=== PATIENT | female | born 1985 | race Caucasian/White ===

== ENCOUNTER 2016-04-30 23:27 | Outpatient (CLI) | payer BC ==
[2016-04-30 23:53] LABS: APPEARANCE,URINE SLIGHTLY-CLOUDY; BILIRUBIN,URINE NEGATIVE (NEGATIVE); GLUCOSE, URINE NEGATIVE (NEGATIVE); KETONES,URINE NEGATIVE (NEGATIVE); LEUKOCYTE ESTERASE,URINE MODERATE (NEGATIVE); NITRITE,URINE NEGATIVE (NEGATIVE); PROTEIN,URINE NEGATIVE (NEGATIVE); URINE SPECIFIC GRAVITY 1.018; UROBILINOGEN,URINE NEGATIVE mg/dL (<2.0)
[2016-05-01 00:04] LABS: URINE BARBITURATES SCREEN NEGATIVE; URINE METHADONE SCREEN NEGATIVE; URINE OPIATES LOW NEGATIVE; URINE PHENCYCLIDINE SCREEN NEGATIVE
--- NOTE | 2016-05-01 04:45 | L&D Admission Assessment ---
LD ADM ASMT Datetime Report Generated by CPN: 05/01/2016 04:45 PATIENT ASSESSMENT Assessment Type: Triage (04/30/2016 23:51:Yeni Field, RN) WEIGHT Weight (lb): 152 (05/01/2016 00:06:QS system process) Weight (kg): 69.1 (05/01/2016 00:06:QS system process) PAIN Pain Scale: 1 (04/30/2016 23:51:Yeni Denise RN) Pain Presence: Intermittent (04/30/2016 23:51:Yeni Denise RN) Pain Type: Cramping (04/30/2016 23:51:Yeni Denise RN) Pain Location: Abdomen; Perineum (04/30/2016 23:51:Yeni Denise RN) Pain Goal: 0 (04/30/2016 23:51:Yeni Denise RN) Pain Related to Contraction: Unsure (04/30/2016 23:51:Yeni Denise RN) CONTRACTIONS Frequency (min): 3.5-15.5 (05/01/2016 00:30:Yeni Denise RN) Frequency (min): x2 (05/01/2016 00:00:Yeni Denise RN) Duration (sec): 60-110 (05/01/2016 00:30:Yeni Denise RN) Duration (sec): 60-130 (05/01/2016 00:00:Yeni Denise RN) Quality: Mild (05/01/2016 00:30:Yeni Denise RN) Resting Tone Paden: Relaxed (05/01/2016 00:30:Yeni Denise RN) Resting Tone Paden: Relaxed (05/01/2016 00:00:Yeni Denise RN) NEURO Level of Consciousness: Fully Conscious (04/30/2016 23:51:Yeni Denise RN) DTR's/Clonus: DTRs 2+; No Clonus (04/30/2016 23:51:Yeni Denise RN) Headache: Denies (04/30/2016 23:51:Yeni Denise RN) Dizziness: No (04/30/2016 23:51:Yeni Denise RN) Blurred Vision: No (04/30/2016 23:51:Yeni Denise RN) Extremity Numbness/Tingling : None (04/30/2016 23:51:Yeni Denise RN) Extremity Movement: Full Range of Motion (04/30/2016 23:51:Yeni Denise RN) CARDIOVASCULAR Heart Rhythm: Regular (04/30/2016 23:51:Yeni Denise RN) Nailbeds: [place] (04/30/2016 23:51:Yeni Denise RN) Capillary Refill: Less than 3 Seconds (04/30/2016 23:51:Yeni eDnise RN) Lower Extremities Edema: None (04/30/2016 23:51:Yeni Denise RN) Lower Extremities Edema Degree: None (04/30/2016 23:51:Yeni Denise RN) Upper Extremities Edema: None (04/30/2016 23:51:Yeni Denise RN) Upper Extremities Edema Degree: None (04/30/2016 23:51:Yeni Denise RN) Facial Edema: None (04/30/2016 23:51:Yeni Denise RN) Yair's Sign Left Leg: Negative (04/30/2016 23:51:Yeni Denise RN) Yair's Sign Right Leg: Negative (04/30/2016 23:51:Yeni Denise RN) DVT RISK ASSESSMENT DVT Risk Age: Age less than 41 years (04/30/2016 23:51:Yeni Denise RN) DVT Risk BMI: BMI<31 (04/30/2016 23:51:Yeni Denise RN) DVT Risk Surgery: History of Prior Major Surgery (04/30/2016 23:51:Yeni Denise RN) RESPIRATORY Respiratory Effort: Unlabored; Regular Rhythm; Equal Expansion (04/30/2016 23:51:Yeni Denise, AVIS) Breath Sounds, Left: Clear and Equal (04/30/2016 23:51:Yeni Denise, AVIS) Breath Sounds, Right: Clear and Equal (04/30/2016 23:51:Yeni Denise RN) Cough Productivity: None (04/30/2016 23:51:Yeni Denise, AVIS) GASTROINTESTINAL Nausea/Vomiting: Present (04/30/2016 23:51:Yeni Denise RN) Bowel Sounds: Normoactive (04/30/2016 23:51:Yeni Denise RN) RUQ Epigastric Pain: Denies (04/30/2016 23:51:Yeni Denise RN) Bowel Patterns: Diarrhea (04/30/2016 23:51:Yeni Denise RN) Hemorrhoids: None (04/30/2016 23:51:Yeni Denise RN) Diet Type: Regular diet (04/30/2016 23:51:Yeni Denise RN) Last Meal: 04/30/2016 20:30 (04/30/2016 23:51:Yeni Denise RN) GENITOURINARY Bladder: Nondistended (04/30/2016 23:51:[facility] Frequency of Urination: No [facility]ination Burning: No (04/30/2016 [facility] CVA Tenderness: No (04/30/2016 23:[facility] INTEGUMENTARY Skin Color: Normal for Race (04/30/2016 23:51:[facility] Skin Temperature: Warm (04/30/2016 23:51:[facility] Skin Moisture: Dry (04/30/2016 23:[facility] SKIN ASSESSMENT Alexx Scale Sensory Perception: No Impairment- Responds to verbal commands. Has no sensory deficit which would limit ability to feel or voice pain or discomfort (04/30/2016 23:51:Yeni Denise RN) Alexx Scale Moisture: Rarely Moist- Skin is usually dry. Linen only requires changing at routine intervals (04/30/2016 23:51:Yeni Denise RN) Alexx Scale Activity: Walks Frequently- Walks outside the room at least twice a day and inside room at least every 2 hours during the day. (04/30/2016 23:51:Yeni Denise RN) Alexx Scale Mobility: No Limitations- Makes major and frequent changes in position without assistance (04/30/2016 23:51:Yeni Denise RN) Alexx Scale Nutrition: Excellent- Eats most of every meal. Never refuses a meal. Usually eats a total of 4 or more servings of meat and dairy products. Occasionally eats between meals. Does not require supplementation (04/30/2016 23:51:Yeni Denise RN) Alexx Scale Friction and Shear: No Apparent Problem- Moves in bed and in chair independently and has sufficient muscle strength to lift up completely during move. Maintains good position in bed or chair at all times (04/30/2016 23:51:Yeni Denise RN) Alexx Scale Total: 23 (04/30/2016 23:51:QS system process) Alexx Scale Risk: No Risk of Pressure Ulcer Noted at this Time (04/30/2016 23:51:QS system process) SUPPORT Emotional State: Calm/Relaxed (04/30/2016 23:51:Yeni Denise RN) SAFETY Call Roach Within Reach: Yes (04/30/2016 23:51:Yeni Denise RN) Side Rails Up: Yes (04/30/2016 23:51:Yeni Denise RN) Bed Wheels Locked: Yes (04/30/2016 23:51:Yeni Denise RN) Arm Bands Present: Yes (04/30/2016 23:51:Yeni Denise RN) Isolation: [place] (04/30/2016 23:51:Yeni Denise RN) FALL SCREEN Fall Risk History of Falling: (0) No (04/30/2016 23:51:Yeni Denise RN) Fall Risk Secondary Diagnosis: (0) No (04/30/2016 23:51:Yeni Denise RN) Fall Risk Ambulatory Aid: (0) None/Bedrest/Wheelchair/Nurse Assist (04/30/2016 23:51:Yeni Denise RN) Fall Risk IV Therapy: (0) No (04/30/2016 23:51:Yeni Denise RN) Fall Risk Gait: (0) Normal/Bedrest/Immobile (04/30/2016 23:51:Yeni Denise RN) Fall Risk Mental Status: (0) Oriented to Own Ability (04/30/2016 23:51:Yeni Denise RN) Fall Risk Score: 0 (04/30/2016 23:51:QS system process) Fall Risk Score Definition: No Risk: No action required (04/30/2016 23:51:QS system process) RECENT TRAVEL/INFECTIOUS DISEASE Recent Exp Communicable Disease: No (04/30/2016 23:51:Yeni Denise RN) Cough or Fever: No (04/30/2016 23:51:Yeni Denise RN) Foreign Travel Past 10 Days: No (04/30/2016 23:51:Yeni Denise RN) Open Wounds or Sores: No (04/30/2016 23:51:Yeni Denise RN) Prior Antibiotic Resistance Tx: No (04/30/2016 23:51:Yeni Denise RN) Isolation Initiated: No (04/30/2016 23:51:Yeni Denise RN) Pt/Family Education: Handwashing Hygiene (04/30/2016 23:51:Yeni Denise RN) BABY A FHR Baseline Rate (bpm) Baby A: 115 (05/01/2016 00:30:Yeni Denise RN) FHR Baseline Rate (bpm) Baby A: 115 (05/01/2016 00:00:Yeni Denise RN) Variability Baby A: Moderate 6-25 bpm (05/01/2016 00:30:Yeni Denise RN) Variability Baby A: Moderate 6-25 bpm (05/01/2016 00:00:Yeni Denise RN) Accelerations Baby A: 15X15 (05/01/2016 00:30:Yeni Denise RN) Accelerations Baby A: 15X15 (05/01/2016 00:00:Yeni Denise RN) Decelerations Baby A: None (05/01/2016 00:30:Yeni Denise RN) Decelerations Baby A: None (05/01/2016 00:00:Yeni Denise RN)
--- NOTE | 2016-05-01 04:45 | Antepartum Discharge Summary ---
Antepartum DC Datetime Report Generated by CPN: 05/01/2016 04:45 DIET/ACTIVITY/RESTRICTIONS Diet: Regular (05/01/2016 00:53:Yeni Denise RN) Activity: Normal Activity (05/01/2016 00:53:Yeni Denise, RN) TEACHING/INSTRUCTIONS/REFERRALS Instructions Given To: Patient (05/01/2016 00:53:Yeni Denise RN) Instructions Understood: Patient Verbalized Understanding (05/01/2016 00:53:Yeni Denise RN) Referrals: None (05/01/2016 00:53:Yeni Denise RN) Educational Materials- Other: Dehydration Labor (05/01/2016 00:53:Yeni Denise RN) DISCHARGE INFORMATION Discharged AMA: No (05/01/2016 00:53:Yeni Denise RN) Discharge Date/Time: 05/01/2016 00:48 (05/01/2016 00:53:Yeni Denise RN) Discharged To: Home (05/01/2016 00:53:Yeni Denise RN) Discharge Provider Name: Dr. Olivia (05/01/2016 00:53:Yeni Denise RN) Accompanied By: Self (05/01/2016 00:53:Yeni Denise RN) Discharge Method: Ambulatory (05/01/2016 00:53:Yeni Denise RN) Condition: Stable (05/01/2016 00:53:Yeni Denise RN) FOLLOW UP INFORMATION Follow Up With: [facility] (05/01/2016 00:53:Yeni Denise RN) Follow Up On: As Scheduled (05/01/2016 00:53:Yeni Denise RN) Follow Up Phone Number: [facility] - (05/01/2016 00:53:Yeni Denise RN) Comments: Discussed dehydration, labor and signs and symptoms of when to return to office or hospital with patient. Patient verbalized understanding. Patient discharged home for false labor via ambulation in stable condition. (05/01/2016 00:53:Yeni Denise RN) GENERAL INSTR-CALL PROVIDER IF: Contractions: Contractions or cramps become more frequent than 8 in one hour or 4 in 20 minutes; Regular painful contractions every 5 minutes or less for one hour. Time your contractions from the beginning of one to the beginning of the next (05/01/2016 00:53:Yeni Denise RN) Pressure: Pressure in your vagina or lower abdomen that may feel like the baby is pushing down (05/01/2016 00:53:Yeni Denise RN) Period Like Cramps: Period-like cramps or low dull backache that may come and go (05/01/2016 00:53:Yeni Denise RN) Cramps/Diarrhea: Abdominal cramps that may be accompanied by diarrhea (05/01/2016 00:53:Yeni Denise RN) Gush of Fluid/Blood: Gush of fluid or blood from your vagina (it is normal to have spotting after vaginal exam or intercourse) (05/01/2016 00:53:Yeni Denise RN) Vaginal Discharge: Change in the type or amount of vaginal discharge (05/01/2016 00:53:Yeni Denise RN) Decreased Movement: Your baby is not moving as much as usual- 4 movements in 1 hour after drinking and resting on side (05/01/2016 00:53:Yeni Denise RN) Temperature: Temperature greater than 100.0(F) orally (05/01/2016 00:53:Yeni Denise RN) Hypertension Signs/Symptoms: Severe headache which is not relieved 30 minutes after taking Tylenol(Acetaminophen); Blurry vision or spots before your eyes; Severe heartburn or pain on the upper right side of your abdomen that is not relieved by an antacid; Increased swelling in your face, hands or feet (05/01/2016 00:53:Yeni Denise RN) Urinary Output: Decreased urinary output or dark colored urine (05/01/2016 00:53:Yeni Denise RN)
--- NOTE | 2016-05-01 04:45 | L&D Flow Sheet ---
LD Flowsheet Datetime Report Generated by CPN: 05/01/2016 04:45 Datetime: 05/01/2016 00:35 Communication Communication: RN Reviewed Strip; Provider Orders Received; Call/Page Placed to Provider (Yeni Denise RN) Communication Comments: Informed DrMansoor Olivia of patient's complaint, history, urine results and FHR/Contractions; orders received to discharge home. (Yeni Denise RN) Datetime: 05/01/2016 00:30 Uterine Activity Monitor Mode: External; Palpation ([facility], RN) Frequency (min): 3.5-15.5 ([facility], RN) Quality: Mild ([facility], RN) Duration (sec): 60-110 ([facility], RN) Resting Tone (Palpate): Relaxed ([facility], RN) Assessment A Monitor Mode: External US ([facility], RN) FHR Baseline Rate : 115 ([facility], RN) Variability: Moderate 6-25 bpm (Yeni Field, RN) Accelerations: 15X15 (Yeni Field, RN) Decelerations: None (Yeni Field, RN) Datetime: 05/01/2016 00:16 NBP Sys/Holly/Mean (mmHg): 99 (QS system process) : 56 (QS system process) : 72 (QS system process) Pulse: 76 (QS system process) LaborFlag: Antepartum (QS system process) Datetime: 05/01/2016 00:01 Patient Care Patient Care Comments: Patient sat up in bed to pull bedside table closer (Yeni Field, RN) Datetime: 05/01/2016 00:00 Uterine Activity Monitor Mode: External; Palpation (Yeni Field, RN) Frequency (min): x2 (Yeni Field, RN) Duration (sec): 60-130 (Yeni Field, RN) Resting Tone (Palpate): Relaxed (Yeni Field, RN) Assessment A Monitor Mode: External US (Yeni Field, RN) FHR Baseline Rate : 115 ([facility]) Variability: Moderate 6-25 bpm ([facility]) Accelerations: 15X15 ([facility]) Decelerations: None ([facility]) Datetime: 04/30/2016 23:51 Pain Pain Scale: 1 ([facility], ) Pain Presence: Intermittent ([facility], ) Pain Type: Cramping ([facility], ) Pain Location: Abdomen; Perineum ([facility], ) Pain Goal: 0 ([facility]) Pain Relief Measures: Comfort Measures ([facility], ) Pain Coping: Talking Through Contractions; Breathing Through Contractions ([facility], ) Vaginal Exam Vaginal Bleeding: None (Yeni Field, RN) Maternal Assessment Level of Consciousness: Fully Conscious (Yeni Field, RN) DTR's/Clonus: DTRs 2+; No Clonus (Yeni Field, RN) Headache: Denies (Yeni Field, RN) Breath Sounds, Left: Clear and Equal (Yeni Field, RN) Breath Sounds, Right: Clear and Equal (Yeni Field, RN) Nausea/Vomiting: Present (Yeni Field, RN) RUQ Epigastric Pain: Denies (Yeni Field, RN) Teaching Instructional Method: Verbal; Patient Instructed; Verbalized Understanding (Yeni Denise, RN) Plan of Care: Plan of Care Discussed (Yeni Denise, RN) Unit Routine: [place] to Room; Call Roach; Bed; Visiting Policy; Waiting Areas; Phone/Cell Phone Use; Unit Personnel; Handwashing; Monitoring; Safety/Fall Risk Prevention; Bathroom Privileges (Yeni Field, RN) LaborFlag: Antepartum (QS system process) Datetime: 04/30/2016 23:46 NBP Sys/Holly/Mean (mmHg): 105 (QS system process) : 65 (QS system process) : 77 (QS system process) Pulse: 77 (QS system process) LaborFlag: Antepartum (QS system process) Datetime: 04/30/2016 23:44 Vital Signs Stage of : Antepartum (Yeni Denise RN)
--- NOTE | 2016-05-01 04:45 | L&D Current Admission ---
Current Admit Datetime Report Generated by CPN: 05/01/2016 04:45 ADMISSION INFORMATION Chief Complaint: Uterine Cramping (04/30/2016 23:51:Yeni Denise RN)
--- NOTE | 2016-05-01 04:45 | L&D Discharge Summary ---
OB Discharge Summary Datetime Report Generated by CPN: 05/01/2016 04:45 DISCHARGE DIAGNOSIS Diagnosis/Symptoms: False Labor Gestation: 34.2 Number of Babies in Womb: 1 Parity: 2 DIET/ACTIVITY/RESTRICTIONS Diet: Regular Activity: Normal Activity TEACHING/INSTRUCTIONS/REFERRALS Instructions Given To: Patient Instructions Understood: Patient Verbalized Understanding Referrals: None Educational Materials- Other: Dehydration Labor DISCHARGE INFORMATION Discharged AMA: No Discharge Date/Time: 05/01/2016 00:48 Discharged To: Home Discharge Provider Name: DrMansoor Olivia Accompanied By: Self Discharge Method: Ambulatory Condition: Stable FOLLOW UP INFORMATION Follow Up With: [facility] Follow Up On: As Scheduled Follow Up Phone Number: [facility] - Comments: Discussed dehydration, labor and signs and symptoms of when to return to office or hospital with patient. Patient verbalized understanding. Patient discharged home for false labor via ambulation in stable condition. GENERAL INSTR-CALL PROVIDER IF: Contractions: Contractions or cramps become more frequent than 8 in one hour or 4 in 20 minutes; Regular painful contractions every 5 minutes or less for one hour. Time your contractions from the beginning of one to the beginning of the next Pressure: Pressure in your vagina or lower abdomen that may feel like the baby is pushing down Period Like Cramps: Period-like cramps or low dull backache that may come and go Cramps/Diarrhea: Abdominal cramps that may be accompanied by diarrhea Gush of Fluid/Blood: Gush of fluid or blood from your vagina (it is normal to have spotting after vaginal exam or intercourse) Vaginal Discharge: Change in the type or amount of vaginal discharge Decreased Movement: Your baby is not moving as much as usual- 4 movements in 1 hour after drinking and resting on side Temperature: Temperature greater than 100.0(F) orally
--- NOTE | 2016-05-01 04:45 | L&D General Admission ---
General Admit Datetime Report Generated by CPN: 05/01/2016 04:45 INFORMATION Patient Age: 30 (04/30/2016 23:28:QS system process) EDC: 06/09/2016 00:00 (04/30/2016 23:31:Ibis Ojeda RN) : 3 (04/30/2016 23:31:Ibis Ojeda RN) Para: 2 (04/30/2016 23:31:Ibis Ojeda RN) Term: 2 (04/30/2016 23:31:Ibis Ojeda RN) : 0 (04/30/2016 23:31:Ibis Ojeda RN) Spontaneous Abortions: 0 (04/30/2016 23:31:Ibis Ojeda RN) Induced Abortions: 0 (04/30/2016 23:31:Ibis Ojeda RN) Livin (04/30/2016 23:31:Ibis Ojeda RN) Cesareans: 0 (04/30/2016 23:31:Ibis Ojeda RN) VBACs: 0 (04/30/2016 23:31:Ibis Ojeda RN) Ectopic: 0 (04/30/2016 23:31:Ibis Ojeda RN) Multiple Births: 0 (04/30/2016 23:31:Ibis Ojeda RN) Baby, Number in Womb: 1 (04/30/2016 23:31:Ibis Ojeda RN) CARE Primary Bricklayer Paving Brick: [facility] (04/30/2016 23:31:Yeni Denise RN) Height (in): 63 (05/01/2016 00:06:QS system process) ALLERGIES Medication Allergy: No (04/30/2016 23:31:Yeni Denise RN) Medication Allergies: No Known Allergies (05/01/2016) (05/01/2016 00:04:QS system process) Medication Allergies: N/A (04/30/2016 23:31:Yeni Denise RN) Latex Allergy: No Latex Allergies (04/30/2016 23:31:Yeni Denise RN) Food Allergies: N/A (04/30/2016 23:31:Yeni Denise RN) Environmental Allergies: N/A (04/30/2016:31:Yeni Denise RN) COMMUNICATION Primary Language: Kenyan (04/30/2016 23::Yeni Denise RN) Medical Tx Preferred Language: Kenyan (04/30/2016 23::Yeni Denise RN) Communication Barrier(s): None (04/30/2016 23::Yeni Denise RN) DEMOGRAPHICS Address: [address] [place] [address] (04/30/2016 23:28:QS system process) Zipcode: [address] (04/30/2016 23:28:QS system process) Home (04/30/2016 23:28:QS system process) SSN: [id number] (04/30/2016 23:28:QS system process) Next of Kin Name: ANDRAE STEINBERG (04/30/2016 23:28:QS system process) Next of Kin (04/30/2016 23:28:QS system process) Next of Kin Relationship: SPO (04/30/2016 23:28:QS system process) Date of : 1985 (04/30/2016 23:28:QS system process) Marital Status: (04/30/2016 23:28:QS system process) Sex: Female (04/30/2016 23:28:QS system process) Race: (04/30/2016 23:28:QS system process) Ethnicity: Non- or (04/30/2016 23:28:QS system process) Gnosticism: Other (04/30/2016 23:28:QS system process) DRUG AND ALCOHOL USE Alcohol: No (04/30/2016 23:31:Yeni Denise RN) Cigarettes: Never Smoker. [id number] (04/30/2016 23:31:Yeni Denise RN) Marijuana: No (04/30/2016 23:31:Yeni Denise RN) Cocaine: No (04/30/2016 23:31:Yeni Denise RN) Other Illicit Drugs: No (04/30/2016 23:31:Yeni Denise RN) VACCINE HISTORY Influenza Vaccine: No (04/30/2016 23:31:Ibis Ojeda RN) Influenza Date: declined (04/30/2016 23:31:Ibis Ojeda RN) Pneumococcal Vaccine: No (04/30/2016 23:31:Yeni Denise RN) Tetanus Vaccine: Yes (04/30/2016 23:31:Yeni Denise RN) Tdap Vaccine: Yes (04/30/2016 23:31:Ibis Ojeda RN) Tdap Date: 03/23/2016 (04/30/2016 23:31:Ibis Ojeda RN) Hepatitis B Vaccine: Uncertain (04/30/2016 23:31:Yeni Denise RN) Machine Striper: [facility] (04/30/2016 23:31:Yeni Denise RN) Feeding Preference: Both (04/30/2016 23:31:Yeni Denise RN) Benefit of Breast Feed Discussed: Yes (04/30/2016 23:31:Yeni Denise RN) Circumcision: Yes (04/30/2016 23:31:Yeni Denise RN) Classes Attended: No (04/30/2016 23:31:Yeni Denise RN) Consent: N/A (04/30/2016 23:31:Yeni Denise RN) Consent Signed: N/A (04/30/2016 23:31:Yeni Denise RN) Pain Management Plans: Epidural (04/30/2016 23:31:Yeni Field, RN) Plans for Labor and Delivery: None (04/30/2016 23:31:Yeni Denise RN) Support Person: Andrae Steinberg (04/30/2016 23:31:Yeni Denise RN) Support Person Relationship: (04/30/2016 23:31:Yeni Denise RN) Cultural/Spritual Practice: Jo (04/30/2016 23:31:Yeni Denise RN) Spir/Cult Dietary Needs: No (04/30/2016 23:31:Yeni Denise RN) LIVING SITUATION/DISCHARGE PLAN Living Arrangements: House (04/30/2016 23:31:Yeni Denise RN) Adequate Access to:: Electric; Heat; Refrigeration; Plumbing/Running water; Phone; Transportation (04/30/2016 23:31:Yeni Denise RN) WIC Program: Jo (04/30/2016 23:31:Yeni Denise RN) Discharge Hand Trimmer Person: Andrae Steinberg (04/30/2016 23:31:Yeni Denise RN) Person to Help after Discharge: Andrae Steinberg (04/30/2016 23:31:Yeni Denise RN) Currently Using Commun Resources: Jo (04/30/2016 23:31:Yeni Denise RN) Outside Agency/Shipyard Painter: Jo (04/30/2016 23:31:Yeni Denise RN) Adoption Requested: Jo (04/30/2016 23:31:Yeni Denise RN) Pt Contact w/ Post : N/A (04/30/2016 23:31:Yeni Denise RN) LABS Blood Type: A Negative (04/30/2016 23:31:Ibis Ojeda RN) Antibody Screen: Negative (04/30/2016 23:31:Yeni Denise RN) Gonorrhea: Negative (04/30/2016 23:31:Ibis Ojeda RN) Chlamydia: Negative (04/30/2016 23:31:Ibis Ojeda RN) RPR/VDRL: Nonreactive (04/30/2016 23:31:Ibis Ojeda RN) HIV Results: negative (04/30/2016 23:31:Ibis Ojeda RN) Hepatitis B: Negative (04/30/2016 23:31:Ibis Ojeda RN) Rubella: Non-Immune (04/30/2016 23:31:Ibis Ojeda RN) Rubella Titer: 0.93 (04/30/2016 23:31:Ibis Ojeda RN) OB/PREVIOUS HISTORY Previous Procedures: Ultrasound; NST (04/30/2016 23:31:Ibis Ojeda RN) Current Procedures: Ultrasound (04/30/2016 23:31:Ibis Ojeda RN) History of Previous : No (04/30/2016 23:31:Yeni Denise RN) History of Gestational Diabetes: No (04/30/2016 23:31:Yeni Denise RN) History of PIH: No (04/30/2016 23:31:Yeni Denise RN) History of Incompetent Cervix: No (04/30/2016 23:31:Yeni Denise RN) History of Placenta Previa/Abrup: No (04/30/2016 23:31:Yeni Denise RN) History of Macrosomia: No (04/30/2016 23:31:Yeni Denise RN) History of IUGR: No (04/30/2016 23:31:Yeni Denise RN) History of Hemorrhage: No (04/30/2016 23:31:Yeni Denise RN) History of Loss/Stillborn: No (04/30/2016 23:31:Yeni Denise RN) History of : No (04/30/2016 23:31:Yeni Denise RN) History of D (Rh) Sensitization: No (04/30/2016 23:31:Yeni Denise RN) History Recurrent Loss/Stillborn: No (04/30/2016 23:31:Yeni Denise RN) History Depression/PP Depression: No (04/30/2016 23:31:Yeni Denise RN) History of Uterine Anomaly/ANNE: No (04/30/2016 23:31:Yeni Denise RN) History of Infertility: No (04/30/2016 23:31:Yeni Denise RN) History of ART Treatment: No (04/30/2016 23:31:Yeni Denise RN) History of ANNE: No (04/30/2016 23:31:Yeni Denise RN) Comments Obstetrical History: g1- 2005, female, , epidural, 6lb 12oz g2- 2005, male, , epidural, 7lb 11oz g3- current Rhogam 03/23/2016 (04/30/2016 23:31:Ibis Ojeda RN) MEDICAL HISTORY Med Hx Diabetes: No (04/30/2016 23:31:Yeni Denise RN) Med Hx Hypertension: No (04/30/2016 23:31:Yeni Denise RN) Med Hx Heart Disease: No (04/30/2016 23:31:Yeni Denise RN) Med Hx Autoimmune Disorder: No (04/30/2016 23:31:Yeni Denise RN) Med Hx Kidney Disease/UTI: Yes (04/30/2016 23:31:Yeni Denise RN) Med Hx Neurologic/Epilepsy: No (04/30/2016 23:31:Yeni Denise RN) Med Hx Psychiatric Disorders: No (04/30/2016 23:31:Yeni Denise RN) Med Hx Hepatitis/Liver Disease: No (04/30/2016 23:31:Yeni Denise RN) Med Hx Varicosities/Phlebitis: No (04/30/2016 23:31:Yeni Denise RN) Med Hx Thyroid Dysfunction: No (04/30/2016 23:31:Yeni Denise RN) Med Hx Trauma/Violence: No (04/30/2016 23:31:Yeni Denise RN) Med Hx Blood Transfusion: No (04/30/2016 23:31:Yeni Denise RN) Med Hx Pulmonary (Asthma,TB): No (04/30/2016 23:31:Yeni Denise RN) Med Hx Breast: Yes (04/30/2016 23:31:Yeni Denise RN) Med Hx GUINEA PIG BREEDER Surgery: No (04/30/2016 23:31:Yeni Denise RN) Med Hx Hospitalization/Surgery: Yes (04/30/2016 23:31:Yeni Denise RN) Med Hx Anesthetic Complications: No (04/30/2016 23:31:Yeni Denise RN) Med Hx Abnormal Pap Smear: No (04/30/2016 23:31:Yeni Denise RN) Other Medical Diseases: No (04/30/2016 23:31:Yeni Denise RN) Med Hx Significant Family Hx: No (04/30/2016 23:31:Yeni Denise RN) Details of Med/Surg Hx: uti, anemia, breast augmentation (2005) (04/30/2016 23:31:Yeni Denise RN) INFECTIOUS HISTORY Inf Hx Gonorrhea: No (04/30/2016 23:31:Yeni Denise RN) Inf Hx Chlamydia: No (04/30/2016 23:31:Yeni Denise RN) Inf Hx Syphilis: No (04/30/2016 23:31:Yeni Denise RN) Inf Hx HIV/AIDS: No (04/30/2016 23:31:Yeni Denise RN) Inf Hx Human Papilloma Virus: No (04/30/2016 23:31:Yeni Denise RN) Inf Hx Pt/Partner Genital Herpes: No (04/30/2016 23:31:Yeni Denise RN) Inf Hx Tuberculosis/Exposure: No (04/30/2016 23:31:Yeni Denise RN) Inf Hx Hepatitis B,C: No (04/30/2016 23:31:Yeni Denise RN) Inf Hx Rash or Viral Illness: No (04/30/2016 23:31:Yeni Denise RN) GENETIC HISTORY Gen Hx Age >=35 at [place]: No (04/30/2016 23:31:Yeni Denise RN) Gen Hx Thalassemia: No (04/30/2016 23:31:Yeni Denise RN) Gen Hx Congenital Heart Defect: No (04/30/2016 23:31:Yeni Denise RN) Gen Hx Neural Tube Defect: No (04/30/2016 23:31:Yeni Denise RN) Gen Hx Down's Syndrome: No (04/30/2016 23:31:Yeni Denise RN) Gen Hx Dong-Sachs: No (04/30/2016 23:31:Yeni Denise RN) Gen Hx Spencer: No (04/30/2016 23:31:Yeni Denise RN) Gen Hx Familial Dysautonomia: No (04/30/2016 23:31:Yeni Denise RN) Gen Hx Sickle Cell Disease/Trait: No (04/30/2016 23:31:Yeni Denise RN) Gen Hx Hemophilia/Blood Disorder: No (04/30/2016 23:31:Yeni Denise RN) Gen Hx Muscular Dystrophy: No (04/30/2016 23:31:Yeni Denise RN) Gen Hx Cystic Fibrosis: No (04/30/2016 23:31:Yeni Denise RN) Gen Hx Huntingtons Chorea: No (04/30/2016 23:31:Yeni Denise RN) Gen Hx Mental Retardation/Autism: No (04/30/2016 23:31:Yeni Denise RN) Gen Hx Tested for Fragile X: No (04/30/2016 23:31:Yeni Denise RN) Gen Hx Other Inher/Chromosomal: No (04/30/2016 23:31:Yeni Denise RN) Gen Hx Maternal Metabolic DO: No (04/30/2016 23:31:Yeni Denise RN) Gen Hx Pt Father or FOB Defect: No (04/30/2016 23:31:Yeni Denise RN) Gen Hx Other Genetic History: No (04/30/2016 23:31:Yeni Denise RN) Gen Hx Drugs/Meds since LMP: Yes (04/30/2016 23:31:Yeni Denise RN) Gen Hx Medications: vitamins and Iron supplement (04/30/2016 23:31:Yeni Denise RN)
== END 2016-05-01 00:48 | disposition home or self-care (01) ==
LOC: LC 23:27
PROVIDERS: ATTEND Obstetrics & Gynecology
PROC: 4A1HXCZ Monitoring of Products of Conception, Cardiac Rate, External Approach (ICD-10-PCS; principal; 2016-04-30)
DX: O47.03 False labor before 37 completed weeks of gestation, third trimester (principal); Z3A.34 34 weeks gestation of pregnancy
CPT/HCPCS: 59025; 80307; 81001

== ENCOUNTER 2016-05-21 14:23 | Outpatient (CLI) | payer BC ==
--- NOTE | 2016-05-21 14:25 | Non Stress Test Report ---
Non Stress Test Datetime Report Generated by CPN: 05/21/2016 14:25 DEMOGRAPHIC Test Number: 1 EGA NST: 34.3 INDICATION Indication for Study: Ordered by Provider Indication for Study (NST) Other: LC MONITORING Monitor Explained: Monitor Explained; Test Explained; Patient Verbalized Understanding Time on Monitor: 04/30/2016 23:44 Time off Monitor: 05/01/2016 00:39 NST Duration: 55 NST INTERVENTIONS NST Interventions: PO Hydration; Reposition Patient Physician Notified NST: Dr. Olivia BABY A: [id number] BABY A Movement : Present Contraction Frequency : 3.5-15.5 FHR Baseline : 115 Accelerations : 15X15 Decelerations : None Variability : Moderate 6-25bpm NST Review: Meets Criteria for Reactive NST NST Review and Verified By : Maria C Briseno RN NST Results: Reactive NST REPORT Report Trigger: Send Report
[2016-05-21 15:00] LABS: APPEARANCE,URINE CLOUDY; BILIRUBIN,URINE NEGATIVE (NEGATIVE); GLUCOSE, URINE NEGATIVE (NEGATIVE); KETONES,URINE TRACE mg/dL (NEGATIVE); LEUKOCYTE ESTERASE,URINE LARGE (NEGATIVE); NITRITE,URINE NEGATIVE (NEGATIVE); PROTEIN,URINE 30 mg/dL (NEGATIVE); URINE SPECIFIC GRAVITY 1.023; UROBILINOGEN,URINE NEGATIVE mg/dL (<2.0)
[2016-05-21 15:24] LABS: URINE BARBITURATES SCREEN NEGATIVE; URINE METHADONE SCREEN NEGATIVE; URINE OPIATES LOW NEGATIVE; URINE PHENCYCLIDINE SCREEN NEGATIVE
--- NOTE | 2016-05-21 16:22 | Non Stress Test Report ---
Non Stress Test Datetime Report Generated by CPN: 05/21/2016 16:22 DEMOGRAPHIC EGA NST: 37.2 INDICATION Indication for Study: Ordered by Provider MONITORING Monitor Explained: Monitor Explained; Test Explained; Patient Verbalized Understanding Time on Monitor: 05/21/2016 14:46 Time off Monitor: 05/21/2016 16:05 NST Duration: 79 NST INTERVENTIONS NST Interventions: PO Hydration; Reposition Patient Physician Notified NST: Dr. Neilsen BABY A Movement : Present Contraction Frequency : Irregular FHR Baseline : 125 Accelerations : 15X15 Decelerations : None Variability : Moderate 6-25bpm NST Review: Meets Criteria for Reactive NST NST Results: Reactive NST REPORT Report Trigger: Send Report
== END 2016-05-21 16:11 | disposition home or self-care (01) ==
LOC: LC 14:23
PROVIDERS: ATTEND Specialist
PROC: 4A1HXCZ Monitoring of Products of Conception, Cardiac Rate, External Approach (ICD-10-PCS; principal; 2016-05-21)
DX: O47.1 False labor at or after 37 completed weeks of gestation (principal); O99.283 Endocrine, nutritional and metabolic diseases complicating pregnancy, third trimester; Z3A.37 37 weeks gestation of pregnancy; E86.0 Dehydration
CPT/HCPCS: 80307; 81005

== ENCOUNTER 2016-06-09 05:18 | Outpatient (CLI) | payer BC ==
[2016-06-09 05:58] LABS: APPEARANCE,URINE SLIGHTLY-CLOUDY; BILIRUBIN,URINE NEGATIVE (NEGATIVE); GLUCOSE, URINE NEGATIVE (NEGATIVE); KETONES,URINE 20 mg/dL (NEGATIVE); LEUKOCYTE ESTERASE,URINE TRACE (NEGATIVE); NITRITE,URINE NEGATIVE (NEGATIVE); PROTEIN,URINE NEGATIVE (NEGATIVE); URINE SPECIFIC GRAVITY 1.016; UROBILINOGEN,URINE NEGATIVE mg/dL (<2.0)
[2016-06-09 06:14] LABS: URINE BARBITURATES SCREEN NEGATIVE; URINE METHADONE SCREEN NEGATIVE; URINE OPIATES LOW NEGATIVE; URINE PHENCYCLIDINE SCREEN NEGATIVE
--- NOTE | 2016-06-09 07:34 | Non Stress Test Report ---
Non Stress Test Datetime Report Generated by CPN: 06/09/2016 07:33 DEMOGRAPHIC EGA NST: 40.0 INDICATION Indication for Study: Ordered by Provider MONITORING Monitor Explained: Monitor Explained; Test Explained; Patient Verbalized Understanding Time on Monitor: 06/09/2016 05:32 Time off Monitor: 06/09/2016 06:14 NST Duration: 42 NST INTERVENTIONS NST Interventions: None Physician Notified NST: Dr. Omalley BABY A: [id number] BABY A Movement : Present Contraction Frequency : rare FHR Baseline : 115 Accelerations : 15X15 Decelerations : None Variability : Moderate 6-25bpm NST Review: Meets Criteria for Reactive NST NST Review and Verified By : Any Lanza RN NST Results: Reactive NST REPORT Report Trigger: Send Report
[2016-06-12] MEDS ORDERED: PENICILLIN G-K 5 MILLION UNIT VIAL ONE (08:12)
== END 2016-06-09 07:30 | disposition home or self-care (01) ==
LOC: LC 05:18 → LR 06-12 08:18 → UNDOADMIN 06-12 08:18
PROVIDERS: ATTEND Obstetrics & Gynecology
PROC: 4A1HXCZ Monitoring of Products of Conception, Cardiac Rate, External Approach (ICD-10-PCS; principal; 2016-06-09)
DX: O48.0 Post-term pregnancy (principal); Z3A.40 40 weeks gestation of pregnancy
CPT/HCPCS: 59025; 80307; 81005

== ENCOUNTER 2016-06-12 08:13 | Inpatient (IN) | payer BC ==
[2016-06-12] MEDS ORDERED: RINGERS SOLUTION,LACTATED 1,000 ML IV PRN (08:15)
[2016-06-12] MEDS ORDERED: PENICILLIN G POTASSIUM 5,000,000 UNIT in DEXTROSE 5%-WATER 100 ML IV ONE (08:15)
[2016-06-12] MEDS ORDERED: PENICILLIN G-K 5 MILLION UNIT VIAL IV ONE (08:30)
[2016-06-12 08:38] LABS: APPEARANCE,URINE SLIGHTLY-CLOUDY; BILIRUBIN,URINE NEGATIVE (NEGATIVE); GLUCOSE, URINE NEGATIVE (NEGATIVE); KETONES,URINE NEGATIVE (NEGATIVE); LEUKOCYTE ESTERASE,URINE SMALL (NEGATIVE); NITRITE,URINE NEGATIVE (NEGATIVE); PROTEIN,URINE NEGATIVE (NEGATIVE); URINE SPECIFIC GRAVITY 1.016; UROBILINOGEN,URINE NEGATIVE mg/dL (<2.0)
[2016-06-12 08:57] LABS: ABSOLUTE BASOPHILS # (AUTO) 0.1 10^3/uL (0.0-0.2); ABSOLUTE EOSINOPHILS # (AUTO) 0.1 10^3/uL (0.0-0.6); ABSOLUTE LYMPHOCYTES (AUTO) 1.9 10^3/uL (0.5-4.7); ABSOLUTE MONOCYTES (AUTO) 0.7 10^3/uL (0.1-1.4); ABSOLUTE NEUT (AUTO) 6.1 10^3/uL (1.7-8.2); BASOPHILS % (AUTO) 1.1 % (0-2); HEMOGLOBIN 10.5 g/dL (12.0-15.5); HGB HCT DIFFERENCE 0.5; LYMPHOCYTES % (AUTO) 21.5 % (13-45); MEAN CORPUSCULAR HEMOGLOBIN 28.4 pg (27.0-33.4); MEAN CORPUSCULAR HGB CONC 33.8 g/dL (32.0-36.0); MEAN CORPUSCULAR VOLUME 84 fl (80-97); MONOCYTES % (AUTO) 7.6 % (3-13); RED BLOOD COUNT 3.69 10^6/uL (3.72-5.28); RED CELL DISTRIBUTION WIDTH 14.8 % (11.5-14.0); SEGMENTED NEUTROPHILS % (AUTO) 68.8 % (42-78); WHITE BLOOD COUNT 8.8 10^3/uL (4.0-10.5)
[2016-06-12 08:59] LABS: URINE BARBITURATES SCREEN NEGATIVE; URINE METHADONE SCREEN NEGATIVE; URINE OPIATES LOW NEGATIVE; URINE PHENCYCLIDINE SCREEN NEGATIVE
[2016-06-12] MEDS ORDERED: MISOPROSTOL 0.2 MG TABLET ONE (09:06)
[2016-06-12] MEDS ORDERED: LIDOCAINE 1% INJ-PF (10 MG/ML) 30 ML SDV ONE (09:07)
[2016-06-12] MEDS ORDERED: EPHEDRINE SULFATE INJ 50 MG/1 ML AMPULE ONE (09:07)
[2016-06-12] MEDS ORDERED: OXYTOCIN/NORMAL SALINE 20 UNIT/1,000 ML RTUINJ ONE (09:07)
[2016-06-12] MEDS ORDERED: FENTANYL/BUPIVACAINE/NS/PF 200 MCG/100 ML RTUINJ EPI ONE (09:07)
[2016-06-12] MEDS ORDERED: BUPIVACAINE HCL 0.25 % INJ/PF (2.5 MG/1 ML) 30 ML VIAL ONE (09:07)
[2016-06-12] MEDS ORDERED: PRENATAL VITAMIN W-O CA NO5/FE FUMARATE/FA CAPSULE PO SCH (10:00)
[2016-06-12] MEDS ORDERED: FERROUS SULFATE 325 MG TABLET PO SCH ×2 (10:00→18:00)
[2016-06-12] MEDS ORDERED: (PENDING PHARMACY ID) (Pnv No.122/Iron/Folic Acid [Prenatal Multi Tablet] 1 EACH) PO SCH (10:00)
[2016-06-12] MEDS ORDERED: OXYTOCIN/NORMAL SALINE 1,000 ML IV PRN ×2 (11:34→11:36)
[2016-06-12] MEDS ORDERED: BENZOCAINE/MENTHOL AEROSOL SPRAY 56 ML TOP PRN ×2 (11:34→11:36)
[2016-06-12] MEDS ORDERED: DIBUCAINE 1% OINTMENT 28 GM TP PRN ×2 (11:34→11:36)
[2016-06-12] MEDS ORDERED: ZOLPIDEM TARTRATE 5 MG TABLET PO PRN (11:34)
[2016-06-12] MEDS ORDERED: DIPH/PERTUSS(ACELL)/TETANUS VAC/PF 0.5 ML SYR (>=10YO) IM PRN ×2 (11:34→11:36)
[2016-06-12] MEDS ORDERED: MEASLES,MUMPS&RUBELLA VACC/PF 0.5 ML VIAL SUBCUT PRN ×2 (11:34→11:36)
[2016-06-12] MEDS ORDERED: ACETAMINOPHEN WITH CODEINE #3 TABLET PO PRN ×4 (11:34→11:36)
[2016-06-12] MEDS ORDERED: PENICILLIN G-K 5 MILLION UNIT VIAL IV SCH (12:00)
[2016-06-12] MEDS ORDERED: PENICILLIN G POTASSIUM 2,500,000 UNIT in DEXTROSE 5%-WATER 50 ML IV SCH (12:17)
--- NOTE | 2016-06-12 12:59 | Delivery Summary ---
Del Sum A-C Datetime Report Generated by CPN: 06/12/2016 12:58 DELIVERY PERSONNEL DELIVERY PERSONNEL: [phone] Delivery Doctor:: Earnestine Chavez CNM Nurse Seam Taper Machine Certified:: Earnestine Chavez CNM Labor and Delivery Nurse:: Rose Molina RNmass spectrometry manager Nurse:: LAUREN Medley Drupal Programmer/911 EMERGENCY DISPATCHER: Lilly Lion CST Drupal Programmer/911 EMERGENCY DISPATCHER: Sarah Valero CNA II Additional Personnel: : Rose Terrell, RN MATERNAL INFORMATION Delivery Anesthesia: Epidural Medications After Delivery: Pitocin Bolus-Please Comment Meds After Delivery Comment: pitocin 20 unit in 1000 ml NSS open for bolus Estimated Blood Loss (ml): 200 Maternal Complications: None Provider Comments: of viable male , over intact perineum. Head, shoulders, and body delivered without difficulty, infant with spontaneous cry and respirations, to maternal abdomen. Cord clamped X2, after 2 min delay, by pts . placed skin to skin. Spontaneous delivery of intact placenta via north mechanism, appears intact, 3 VC. Vagina and perineum inspected, no lacerations noted, hemostasis acheived with external fundal massage and IV pitocin, mother and in stable condition, routine pp care. LABOR SUMMARY EDC: 06/09/2016 00:00 No. Babies in Womb: 1 Attempted: No Labor Anesthesia: Epidural LABOR INFORMATION Reason for Induction: Not Applicable Onset of Labor: 06/12/2016 06:45 Complete Dilatation: 06/12/2016 11:05 Oxytocin: N/A Group B Beta Strep: Positive Antibiotics # of Doses: 1 Antibiotics Time of Last Dose: 0818 Name of Antibiotic Given: Penicillin Steroids Given: None Reason Steroids Not Administered: Not Applicable MEMBRANES Membranes Rupture Method: Spontaneous Rupture of Membranes: 06/12/2016 06:45 Length of Rupture (hr): 4.62 Amniotic Fluid Color: Clear Amniotic Fluid Amount: Small Amniotic Fluid Odor: Normal STAGES OF LABOR Stage 1 hr: 4 Stage 1 min: 20 Stage 2 hr: 0 Stage 2 min: 17 Stage 3 hr: 0 Stage 3 min: 4 Total Time in Labor hr: 4 Total Time in Labor min: 41 VAGINAL DELIVERY Episiotomy: None Laceration Extension: N/A Laceration Type: None Laceration Repair: Not Applicable Laceration Repair Note: n/a Sponge Count Correct: N/A Sharps Count Correct: N/A CSECTION DELIVERY Primary Indication: N/A Secondary Indication: N/A CSection Incidence: N/A Labor: N/A Elective: N/A CSection Incision: N/A BABY A INFORMATION Delivery Date/Time: 06/12/2016 11:22 Method of Delivery: Vaginal Born in Route : No : N/A Forceps: N/A Vacuum Extraction: N/A Shoulder Dystocia : No PRESENTATION/POSITION BABY A Presentation: Cephalic Cephalic Presentation: Vertex Vertex Position: Left Occipital Anterior Breech Presentation: N/A PLACENTA INFORMATION BABY A Placenta Delivery Time : 06/12/2016 11:26 Placenta Method of Delivery: Spontaneous Placenta Status: Delivered SCORES BABY A Heart Rate 1 min: >100 bpm Resp Effort 1 min: Good Cry Reflex Irritability 1 min: Cough or Sneeze or Pulls Away Muscle Tone 1 min: Active Motion Color 1 min: Blue/Pale Resuscitation Effort 1 min: Tactile Stimulation SCORE 1 MIN: 8 Heart Rate 5 min: >100 bpm Resp Effort 5 min: Good Cry Reflex Irritability 5 min: Cough or Sneeze or Pulls Away Muscle Tone 5 min: Active Motion Color 5 min: Body Joice, Extremities Blue Resuscitation Effort 5 min: N/A SCORE 5 MIN: 9 Resuscitation Effort 10 min: N/A INFANT INFORMATION BABY A Gestational Age at Delivery: 40.3 Gestational Status: Full Term- 39- 40.6 Weeks Infant Outcome : Liveborn Condition : Stable Sex: Male IDENTIFICATION BABY A Infant Verification Date/Time: 06/12/2016 12:10 ID Band Number: [id number] Mother's Name Verified: Yes Infant RN Verifying Infant: Kwaku Molina RN Kwaku Terrell RN WEIGHT/LENGTH BABY A Birthweight (gm): 4170 Weight (lb): 9 Infant Weight (oz): 3 Length (in): 21.50 Length (cm): 54.61 CORD INFORMATION BABY A No. Cord Vessels: 3 Nuchal Cord : N/A Cord Blood Taken: Yes-For Eval (Mom's Blood Type - or O+) Infant Suction: None ASSESSMENT BABY A Infant Complications: None Physical Findings at Delivery: Within Normal Limits Infant Respirations: Appears Normal Skin to Skin: Yes Skin to Skin Time (min): 60 Cloth Bleaching Range Back Tender/ALS Called : No Infant Care By: Becky Xander [facility] Transferred To: Remains with Mother SIGNATURES Assignment: Henri Omalley DO Signature: with User ID: Jacob : with User ID: Jacob
[2016-06-12] MEDS ORDERED: IBUPROFEN 800 MG TABLET PO SCH (14:00)
[2016-06-12] MEDS ORDERED: DOCUSATE SODIUM 100 MG CAPSULE PO SCH (18:00)
[2016-06-12] MEDS: IBUPROFEN 800 MG TABLET PO SCH ×2 (18:14→18:19)
[2016-06-12] MEDS: DOCUSATE SODIUM 100 MG CAPSULE PO SCH (18:15)
[2016-06-12] MEDS: FERROUS SULFATE 325 MG TABLET PO SCH (18:15)
[2016-06-13] MEDS: IBUPROFEN 800 MG TABLET PO SCH ×3 (06:04→22:39)
[2016-06-13 07:03] LABS: HEMATOCRIT 28.6 % (36.0-47.0); HEMOGLOBIN 9.9 g/dL (12.0-15.5); HGB HCT DIFFERENCE 1.1; MEAN CORPUSCULAR HGB CONC 34.7 g/dL (32.0-36.0); MEAN CORPUSCULAR VOLUME 83 fl (80-97); RED BLOOD COUNT 3.43 10^6/uL (3.72-5.28); RED CELL DISTRIBUTION WIDTH 14.5 % (11.5-14.0); WHITE BLOOD COUNT 10.4 10^3/uL (4.0-10.5)
--- NOTE | 2016-06-13 09:08 | PDOC PROGRESS REPORT ---
Subjective-OB Subjective: Post Delivery Day: 31 year old. Denies any needs at this time Doing well, no c/o, ambulating, , scant lochia Physical Exam (OB) Vital Signs: Temp Pulse Resp BP Pulse Ox 97.7 F 63 16 99/55 L 98 06/13/16 08:34 06/13/16 08:34 06/13/16 08:34 06/13/16 08:03 06/13/16 08:34 Intake & Output 06/12/16 06/13/16 06/14/16 06:59 06:59 06:59 Weight 69.75 kg - Lochia Lochia Amount: Small 10-25 ml Lochia Color: Rubra/Red - Abdomen Description: Soft, Round Hernia Present: No Fundal Description: Firm, Midline Fundal Height: u/u - u/2 Objective-Diagnostic Laboratory: 06/13/16 06:44 06/12/16 06/12/16 06/13/16 08:30 08:30 06:44 WBC 8.8 10.4 RBC 3.69 L 3.43 L Hgb 10.5 L 9.9 L Hct 31.0 L 28.6 L MCV 84 83 MCH 28.4 29.0 MCHC 33.8 34.7 RDW 14.8 H 14.5 H Plt Count 108 L 111 L Seg Neutrophils % 68.8 Lymphocytes % 21.5 Monocytes % 7.6 Eosinophils % 1.0 Basophils % 1.1 Absolute Neutrophils 6.1 Absolute Lymphocytes 1.9 Absolute Monocytes 0.7 Absolute Eosinophils 0.1 Absolute Basophils 0.1 Blood Type A NEGATIVE Antibody Screen POSITIVE Assessment and Plan(PN) - Assessment and Plan (1) Normal vaginal delivery Is this a current diagnosis for this admission?: Yes - Time Spent with Patient Time with patient: Less than 15 minutes Medications reviewed and adjusted accordingly: Yes - Disposition Anticipated Discharge: Home Within: within 24 hours
[2016-06-13] MEDS: DOCUSATE SODIUM 100 MG CAPSULE PO SCH ×2 (09:10→17:15)
[2016-06-13] MEDS: PRENATAL VITAMIN W-O CA NO5/FE FUMARATE/FA CAPSULE PO SCH (09:10)
[2016-06-13] MEDS: FERROUS SULFATE 325 MG TABLET PO SCH ×2 (09:10→17:15)
[2016-06-13] MEDS: SENNOSIDES/DOCUSATE 8.6-50 MG 1 EACH TABLET PO SCH (09:10)
[2016-06-13] MEDS ORDERED: SENNOSIDES/DOCUSATE 8.6-50 MG 1 EACH TABLET PO SCH (10:00)
[2016-06-13] MEDS ORDERED: PRENATAL VITAMIN W-O CA NO5/FE FUMARATE/FA CAPSULE PO SCH (10:00)
[2016-06-14] MEDS: IBUPROFEN 800 MG TABLET PO SCH (05:36)
[2016-06-14] MEDS: DOCUSATE SODIUM 100 MG CAPSULE PO SCH (09:10)
[2016-06-14] MEDS: PRENATAL VITAMIN W-O CA NO5/FE FUMARATE/FA CAPSULE PO SCH (09:10)
[2016-06-14] MEDS: SENNOSIDES/DOCUSATE 8.6-50 MG 1 EACH TABLET PO SCH (09:10)
[2016-06-14] MEDS: FERROUS SULFATE 325 MG TABLET PO SCH (09:10)
[2016-06-14 09:22] VITALS: BP 108/69
--- NOTE | 2016-06-14 10:54 | PDOC DISCHARGE SUMMARY ---
Final Diagnosis Discharge Date: 06/14/16 - Final Diagnosis (1) Normal vaginal delivery Is this a current diagnosis for this admission?: Yes Discharge Data - Discharge Medication Home Medications: Ferrous Sulfate [Iron] 325 mg PO DAILY 05/01/16 Pnv No.122/Iron/Folic Acid [ Multi Tablet] 1 each PO DAILY 05/01/16 Ibuprofen [Motrin 800 mg Tablet] 800 mg PO Q8 #60 tablet 06/14/16 Reason(s) for Admission: Onset of Labor Procedures: NST Intrapartum Procedure(s): Spontaneous Vaginal Delivery - Diagnosis Test Laboratory: Temp Pulse Resp BP Pulse Ox 97.7 F 70 18 108/69 100 06/14/16 09:21 06/14/16 09:21 06/14/16 09:21 06/14/16 09:21 06/14/16 09:21 06/12/16 06/12/16 06/13/16 08:04 08:30 06:44 RBC 3.69 L 3.43 L Hgb 10.5 L 9.9 L Hct 31.0 L 28.6 L Urine Opiates Screen NEGATIVE - Discharge information/Instructions Discharge Activity: Activity As Tolerated, No Lifting Over 10 Pounds, Pelvic Rest, No tub bath Discharge Diet: Regular Disposition: HOME, SELF-CARE Follow up with: [facility] in: 4, Weeks
--- NOTE | 2016-06-16 09:28 | Admission Physical ---
Datetime Report Generated by CPN: 06/16/2016 09:28 CURRENT ADMISSION Hx Assessment: The History has been Reviewed and is Current Chief Complaint: Uterine Contractions; Suspected Ruptured Membranes Indication for Induction: Not Applicable Admit Plan: Admit to Unit; Initiate Labor Protocol ALLERGIES Medication Allergies: No Medication Allergies: No Known Allergies (05/01/2016) Medication Allergies: N/A Latex: No Latex Allergies Food Allergies: N/A Environmental Allergies: N/A OBSTETRICAL HISTORY EDC: 06/09/2016 00:00 : 3 Para: 2 Term: 2 : 0 SAB: 0 IAB: 0 Ectopic: 0 Livin Cesareans: 0 VBACs: 0 Multiple Births: 0 Gestational Diabetes: No Rh Sensitization: No Incompetent Cervix: No ANNE: No Infertility: No ART Treatment: No Uterine Anomaly: No IUGR: No Hx Previous C/S: No Macrosomia: No Hx Loss/Stillborn: No PIH: No Hx : No Placenta Previa/Abruption: No Depression/PP Depression: No PTL/PROM: No Post Hemorrhage: No Current Procedures: Ultrasound Obstetrical History Comments: g1- 2004, female, , epidural, 6lb 12oz g2- 2006, male, , epidural, 7lb 11oz g3- current Rhogam 03/23/2016 SEE RECORDS Alcohol: No Marijuana : No Cocaine: No Other Illicit Drugs: No Cigarettes: Never Smoker. [id number] MEDICAL HISTORY Diabetes: No Blood Transfusion: No Pulmonary Disease (Asthma, TB): No Breast Disease: Yes Hypertension: No Manager Multimedia Surgery: No Heart Disease: No Hosp/Surgery: Yes Autoimmune Disorder: No Anesthetic Complications: No Kidney Disease: Yes Abnormal Pap Smear: No Neuro/Epilepsy: No Psychiatric Disorders: No Other Medical Diseases: No Hepatitis/Liver Disease: No Significant Family History: No Varicosities/Phlebitis: No Trauma/Violence : No Thyroid Dysfunction: No Medical History Comments: uti, anemia, breast augmentation (2005) INFECTIOUS HISTORY Gonorrhea: No Genital Herpes: No Chlamydia: No Tuberculosis: No Syphilis: No Hepatitis: No HIV/AIDS Exposure: No Rash or Viral Illness: No HPV: No PHYSICAL EXAM General: Normal HEENT: Normal Neurologic: Normal Thyroid: Normal Heart: Normal Lungs: Normal Breast: Normal Back: Normal Abdomen: Normal Genitourinary Exam: Normal Extremities: Normal DTRs: Normal Pelvic Type: Adequate Physical Exam Comments: pelvis proven 7lbs 11 oz Vital Signs: Reviewed VAGINAL EXAM Dilatation: 3 Effacement: 80 Station: -1 Contraction Comments: irregular MEMBRANES Membranes: Ruptured Amniotic Fluid Color: Clear FETUS A Monitoring: External US FHR- Baseline: 135 Variability: Moderate 6-25bpm Accelerations: 15X15 Decelerations: None FHR Category: Category I Admit Comment: SROM, clear 0645 Ctx for last 3 days irregular, states active fetus, small amount of bloody show Admit to L _ D See record for complete hx. Rh negative, received rhogam. GBS +, pcn May have epidural Anticipate PLANS FOR LABOR AND DELIVERY Labor and Delivery: None Pain Management: Epidural Feeding Preference: Both Benefit of Breast Feed Discussed: Yes Circumcision: Yes INFORMED CONSENT Assignment: Henri Omalley DO Signature: with User ID: Jacob : with User ID: Jacob
--- NOTE | 2016-06-18 23:39 | Admission Physical ---
Datetime Report Generated by CPN: 06/18/2016 23:39 CURRENT ADMISSION Hx Assessment: The History has been Reviewed and is Current Chief Complaint: Uterine Contractions; Suspected Ruptured Membranes Indication for Induction: Not Applicable Admit Plan: Admit to Unit; Initiate Labor Protocol ALLERGIES Medication Allergies: No Medication Allergies: No Known Allergies (05/01/2016) Medication Allergies: N/A Latex: No Latex Allergies Food Allergies: N/A Environmental Allergies: N/A OBSTETRICAL HISTORY EDC: 06/09/2016 00:00 : 3 Para: 2 Term: 2 : 0 SAB: 0 IAB: 0 Ectopic: 0 Livin Cesareans: 0 VBACs: 0 Multiple Births: 0 Gestational Diabetes: No Rh Sensitization: No Incompetent Cervix: No ANNE: No Infertility: No ART Treatment: No Uterine Anomaly: No IUGR: No Hx Previous C/S: No Macrosomia: No Hx Loss/Stillborn: No PIH: No Hx : No Placenta Previa/Abruption: No Depression/PP Depression: No PTL/PROM: No Post Hemorrhage: No Current Procedures: Ultrasound Obstetrical History Comments: g1- 2004, female, , epidural, 6lb 12oz g2- 2006, male, , epidural, 7lb 11oz g3- current Rhogam 03/23/2016 SEE RECORDS Alcohol: No Marijuana : No Cocaine: No Other Illicit Drugs: No Cigarettes: Never Smoker. [id number] MEDICAL HISTORY Diabetes: No Blood Transfusion: No Pulmonary Disease (Asthma, TB): No Breast Disease: Yes Hypertension: No Stem Setter Surgery: No Heart Disease: No Hosp/Surgery: Yes Autoimmune Disorder: No Anesthetic Complications: No Kidney Disease: Yes Abnormal Pap Smear: No Neuro/Epilepsy: No Psychiatric Disorders: No Other Medical Diseases: No Hepatitis/Liver Disease: No Significant Family History: No Varicosities/Phlebitis: No Trauma/Violence : No Thyroid Dysfunction: No Medical History Comments: uti, anemia, breast augmentation (2005) INFECTIOUS HISTORY Gonorrhea: No Genital Herpes: No Chlamydia: No Tuberculosis: No Syphilis: No Hepatitis: No HIV/AIDS Exposure: No Rash or Viral Illness: No HPV: No PHYSICAL EXAM General: Normal HEENT: Normal Neurologic: Normal Thyroid: Normal Heart: Normal Lungs: Normal Breast: Normal Back: Normal Abdomen: Normal Genitourinary Exam: Normal Extremities: Normal DTRs: Normal Pelvic Type: Adequate Physical Exam Comments: pelvis proven 7lbs 11 oz Vital Signs: Reviewed VAGINAL EXAM Dilatation: 3 Effacement: 80 Station: -1 Contraction Comments: irregular MEMBRANES Membranes: Ruptured Amniotic Fluid Color: Clear FETUS A EGA: 40.3 Monitoring: External US FHR- Baseline: 135 Variability: Moderate 6-25bpm Accelerations: 15X15 Decelerations: None FHR Category: Category I Admit Comment: SROM, clear 0645 Ctx for last 3 days irregular, states active fetus, small amount of bloody show Admit to L _ D See record for complete hx. Rh negative, received rhogam. GBS +, pcn May have epidural Anticipate PLANS FOR LABOR AND DELIVERY Labor and Delivery: None Pain Management: Epidural Feeding Preference: Both Benefit of Breast Feed Discussed: Yes Circumcision: Yes INFORMED CONSENT Assignment: Henri Omalley DO Signature: with User ID: [email or web address] : with User ID: [email or web address]
== END 2016-06-14 12:58 | disposition home or self-care (01) | DRG 775 ==
LOC: LC 08:13 → LR 08:30 → 2N 14:55
PROVIDERS: ADMIT Obstetrics & Gynecology; ATTEND Obstetrics & Gynecology
PROC: 10E0XZZ Delivery of Products of Conception, External Approach (ICD-10-PCS; principal; 2016-06-12)
PROC: 4A1HXCZ Monitoring of Products of Conception, Cardiac Rate, External Approach (ICD-10-PCS; 2016-06-12)
PROC: 3E0234Z Introduction of Serum, Toxoid and Vaccine into Muscle, Percutaneous Approach (ICD-10-PCS; 2016-06-14)
DX: O99.824 Streptococcus B carrier state complicating childbirth (principal); O26.893 Other specified pregnancy related conditions, third trimester; Z67.91 Unspecified blood type, Rh negative; Z37.0 Single live birth; Z3A.40 40 weeks gestation of pregnancy; Z23 Encounter for immunization
CPT/HCPCS: 36415; 80307; 81005; 85025; 85027; 86592; 86850; 86870; 86900; 86901; 90707; 94760; J2540; J2590; J3490

== ENCOUNTER → 2018-12-13 | Outpatient (CLI) | payer BC ==
--- NOTE | 2018-12-14 08:53 | RADIOLOGY REPORT (SQ) ---
EXAM DESCRIPTION: FINGER RIGHT COMPLETED DATE/TIME: 12/13/2018 8:59 pm REASON FOR STUDY: PAIN OF FINGER OF RIGHT HAND COMPARISON: None. NUMBER OF VIEWS: Three views. TECHNIQUE: AP, lateral, and oblique images acquired of the right second finger. LIMITATIONS: None. FINDINGS: MINERALIZATION: Normal. BONES: No acute fracture or dislocation. No worrisome bone lesions. SOFT TISSUES: Distal 2nd finger soft tissue swelling. No foreign body. OTHER: No other significant finding. IMPRESSION: Distal 2nd finger soft tissue swelling. No radiopaque foreign body or soft tissue gas. No underlying aggressive bony demineralization worrisome for osteomyelitis COMMENT: SITE OF TRAUMA/COMPLAINT MARKED/STAMP COMPLETED: Yes TECHNICAL DOCUMENTATION: JOB ID: [id number] [employer]- All Rights Reserved Reading location - IP/workstation name: [email or web address]
== END ==
LOC: EDSTATUS 20:08 → RAD 20:09
PROVIDERS: ATTEND Nurse Practitioner Family
DX: M79.644 Pain in right finger(s) (principal); M79.89 Other specified soft tissue disorders